=== PATIENT | male | born 1975 | race Caucasian/White ===

== ENCOUNTER 2019-08-02 07:55 | Outpatient (CLI) | payer OTHER, SELFPAY ==
[2019-08-02 08:27] LABS: Basophils Percent Auto 0.3 % (0.2-1.2); Eosinophils Absolute Auto 0.1 K/mm3 (0-0.3); Eosinophils Percent Auto 1.9 % (0-4.4); Hematocrit 44.3 % (42.0-52.0); Hemoglobin 14.7 g/dL (14.0-18.0); Immature Granulocyte Absolute 0.01 K/mm3 (0.00-0.031); Immature Granulocyte Percent A 0.2 % (0-0.5); Lymphocytes Absolute Auto 2.22 K/mm3 (0.9-3.2); Lymphocytes Percent Auto 38.3 % (18.3-44.2); Mean Corpuscular HGB Conc 33.2 g/dl (32-36); Mean Corpuscular Hemoglobin 29.2 pg (26-34); Mean Corpuscular Volume 88.1 fl (80-100); Mean Platelet Volume 10.6 fl (7.4-10.4); Monocytes Absolute Auto 0.5 K/mm3 (0.1-0.6); Neutrophils Absolute Auto 2.9 K/mm3 (1.3-6.7); Neutrophils Percent Auto 50.3 % (45.5-73.1); Platelet Count Result 249 k/mm3 (150-375); Red Blood Count 5.03 M/mm3 (4.6-6.20); Red Cell Distribution Width 13.2 % (11.5-14.5); White Blood Count 5.8 K/mm3 (4.5-10.0)
[2019-08-02 08:43] LABS: Blood Urea Nitrogen 16 mg/dL (9-20); Carbon Dioxide 27 mmol/L (22-30); Chloride 104 mmol/L (98-107); Cholesterol 213 mg/dL (0-200); Estimated Glomerular Filt Rate > 60; Glucose 96 mg/dL (75-110); HDL Direct 60 mg/dL; Potassium 3.9 mmol/L (3.4-5.0); Sodium 139 mmol/L (137-145); Triglycerides 74 mg/dL (<150)
[2019-08-02 08:54] LABS: LDL Cholesterol Direct 128 mg/dL
[2019-08-02 09:31] LABS: Vitamin D 25 Hydroxy 31.9 ng/mL
[2019-08-05 11:30] LABS: Testosterone Total 663 ng/dL (250-1100)
== END 2019-08-02 07:56 | disposition home or self-care (01) ==
LOC: ANHLAB 07:58
PROVIDERS: PCP Nurse Practitioner Family; Visit Provider Nurse Practitioner Family
DX: Z13.220 Encounter for screening for lipoid disorders (principal); R53.83 Other fatigue; Z13.1 Encounter for screening for diabetes mellitus; Z13.21 Encounter for screening for nutritional disorder; E55.9 Vitamin D deficiency, unspecified
CPT/HCPCS: 36415; 80048; 80061; 82306; 82607; 84403; 84443; 85025

== ENCOUNTER 2020-08-23 14:42 | Outpatient (CLI) | payer OTHER, SELFPAY ==
--- NOTE | ~2020-08-23 | XR_ITS ---
XR lumbar spine 6 by the latest impression status w bending DATE: 08/23/2020 15:01 INDICATION: Low back pain. No injury. TECHNIQUE: AP, bilateral oblique views, coned lateral lumbosacral view. Flexion and extension lateral views. COMPARISON: None FINDINGS: Normal alignment lumbar spine. No fracture or bone destruction. The lumbar pedicles are int act. No spondylolysis or spondylolisthesis. No instability on flexion or extension. There is moderate loss of interspace height and mild spurring at L5-S1. There is minimal spurring at L4-5. Degenerative changes at the sacroiliac joints. IMPRESSION: Moderate degenerative disc disease at L5-S1, minimal degenerative disease at L4-5 Reviewed, dictated and finalized at location B. IMPRESSION: Moderate degenerative disc disease at L5-S1, minimal degenerative d isease at L4-5
== END 2020-08-23 14:43 | disposition home or self-care (01) ==
LOC: ANHIMG 14:51
PROVIDERS: PCP Family Medicine; Visit Provider Nurse Practitioner Family
DX: M54.5 Low back pain (principal); M51.37 Other intervertebral disc degeneration, lumbosacral region
CPT/HCPCS: 72114

== ENCOUNTER → 2021-03-06 06:53 | Outpatient (CLI) | payer OTHER, SELFPAY ==
--- NOTE | ~2021-03-06 | MR_ITS ---
EXAMINATION: MR lumbar spine wo con EXAM DATE: 03/06/2021 07:26 INDICATION: M54.5 - Low back pain. TECHNIQUE: Multi-sequential, multiplanar MR images of the lumbar spine were obtained without contrast . Sagittal T1, T2, T2 fat saturation images. Axial T2 weighted images. There is no prior study for comparison. FINDINGS: There is mild to moderate loss of the L5-S1 disc height. Otherwise only minimal disc diseas e. Small L5-S1 annular fissure. The conus medullaris terminates at the L1/2 level and has normal sign al intensity and morphology. Mild edema at the inferior endplate of L5, appearance suggests acute de velopment of small Schmorl's node . Paraspinal soft tissue is unremarkable. Level by level evaluation: T12-L1: Disc does not extend beyond the endplate margin. Facet arthropathy: None. Neural foraminal stenosis: No stenosis. Central canal stenosis: No stenosis. L1-L2: Disc does not extend beyond the endplate margin. Facet arthropathy: Mild. Neural foraminal stenosis: No stenosis. Central canal stenosis: No stenosis. L2-L3: There is a mild diffuse disc bulge. Facet arthropathy: Mild. Neural foraminal stenosis: Mild left. Central canal stenosis: No stenosis. L3-L4: There is a mild diffuse disc bulge. Facet arthropathy: Mild. Neural foraminal stenosis: Mild left. Central canal stenosis: No stenosis. L4-L5: There is a mild diffuse disc bulge. Facet arthropathy: Mild. Neural foraminal stenosis: Mild bilateral. Central canal stenosis: No stenosis. L5-S1: There is a mild to moderate diffuse disc bulge. Facet arthropathy: Mild. Neural foraminal stenosis: Mild bilateral. Central canal stenosis: No stenosis. IMPRESSION: 1. L5 inferior endplate edema along its right half, probably acutely developed Schmorl's node. 2. Mild lumbar spondylosis. Reviewed, dictated and finalized at location A. VERER MERCHANDISE
== END ==
PROVIDERS: PCP Family Medicine; Visit Provider Nurse Practitioner Family
DX: M54.50 Low back pain, unspecified (principal); M51.36 Other intervertebral disc degeneration, lumbar region; M79.89 Other specified soft tissue disorders; M47.816 Spondylosis without myelopathy or radiculopathy, lumbar region
CPT/HCPCS: 72148

== ENCOUNTER 2021-08-19 09:33 | Outpatient (CLI) | payer OTHER, SELFPAY ==
[2021-08-19 09:55] LABS: Basophils Percent Auto 0.2 % (0.2-1.2); Eosinophils Absolute Auto 0.1 K/mm3 (0-0.3); Eosinophils Percent Auto 2.1 % (0-4.4); Hematocrit 43.9 % (42.0-52.0); Hemoglobin 14.3 g/dL (14.0-18.0); Lymphocytes Absolute Auto 1.63 K/mm3 (0.9-3.2); Lymphocytes Percent Auto 37.4 % (18.3-44.2); Mean Corpuscular HGB Conc 32.6 g/dl (32-36); Mean Corpuscular Hemoglobin 29.1 pg (26-34); Mean Corpuscular Volume 89.2 fl (80-100); Mean Platelet Volume 10.2 fl (7.4-10.4); Monocytes Absolute Auto 0.4 K/mm3 (0.1-0.6); Monocytes Percent Auto 8.7 % (2.6-8.5); Neutrophils Absolute Auto 2.3 K/mm3 (1.3-6.7); Neutrophils Percent Auto 51.6 % (45.5-73.1); Platelet Count Result 259 k/mm3 (150-375); Red Blood Count 4.92 M/mm3 (4.6-6.20); Red Cell Distribution Width 13.2 % (11.5-14.5); White Blood Count 4.4 K/mm3 (4.5-10.0)
[2021-08-19 10:05] LABS: Anion Gap 5 mmol/L (8-16); Blood Urea Nitrogen 14 mg/dL (9-20); Calcium 8.7 mg/dL (8.4-10.2); Carbon Dioxide 29 mmol/L (22-30); Chloride 106 mmol/L (98-107); Cholesterol 199 mg/dL (0-200); Estimated Glomerular Filt Rate > 60; Glucose 94 mg/dL (65-110); HDL Direct 51 mg/dL; Potassium 3.9 mmol/L (3.4-5.0); Sodium 140 mmol/L (137-145); Triglycerides 97 mg/dL (<150)
[2021-08-19 10:16] LABS: LDL Cholesterol Direct 111 mg/dL
[2021-08-19 10:36] LABS: Prostate Specific Antigen 1.2 ng/mL (< OR = 4.0)
== END 2021-08-19 09:34 | disposition home or self-care (01) ==
LOC: ANHLAB 09:35
PROVIDERS: PCP Family Medicine; Visit Provider Physician Assistant Medical
DX: R53.83 Other fatigue (principal); E78.5 Hyperlipidemia, unspecified; Z12.5 Encounter for screening for malignant neoplasm of prostate; Z13.1 Encounter for screening for diabetes mellitus
CPT/HCPCS: 36415; 80048; 80061; 84153; 85025; G0103

== ENCOUNTER 2021-10-15 13:14 | Outpatient (CLI) | payer OTHER, SELFPAY ==
[2021-10-15 14:07] LABS: Basophils Percent Auto 0.3 % (0.2-1.2); Eosinophils Absolute Auto 0.1 K/mm3 (0-0.3); Hematocrit 43.6 % (42.0-52.0); Hemoglobin 14.6 g/dL (14.0-18.0); Immature Granulocyte Absolute 0.01 K/mm3 (0.00-0.031); Immature Granulocyte Percent A 0.1 % (0-0.5); Lymphocytes Absolute Auto 2.28 K/mm3 (0.9-3.2); Lymphocytes Percent Auto 31.8 % (18.3-44.2); Mean Corpuscular HGB Conc 33.5 g/dl (32-36); Mean Corpuscular Hemoglobin 29.3 pg (26-34); Mean Corpuscular Volume 87.6 fl (80-100); Mean Platelet Volume 10.4 fl (7.4-10.4); Monocytes Absolute Auto 0.6 K/mm3 (0.1-0.6); Monocytes Percent Auto 8.4 % (2.6-8.5); Neutrophils Absolute Auto 4.2 K/mm3 (1.3-6.7); Neutrophils Percent Auto 58.4 % (45.5-73.1); Platelet Count Result 302 k/mm3 (150-375); Red Blood Count 4.98 M/mm3 (4.6-6.20); Red Cell Distribution Width 13.3 % (11.5-14.5); White Blood Count 7.2 K/mm3 (4.5-10.0)
== END 2021-10-15 13:15 | disposition home or self-care (01) ==
LOC: ANHLAB 13:15
PROVIDERS: PCP Family Medicine; Visit Provider Physician Assistant Medical
DX: D72.9 Disorder of white blood cells, unspecified (principal)
CPT/HCPCS: 36415; 85025

== ENCOUNTER → 2021-11-18 10:14 | Outpatient (CLI) | payer OTHER, SELFPAY ==
--- NOTE | ~2021-11-18 | MR_ITS ---
EXAMINATION: MR cervical spine wo con DATE: 11/18/2021 10:46 INDICATION: Right-sided neck pain. TECHNIQUE: Magnetic resonance imaging (MRI) of the cervical spine was performed without intravenous c ontrast. Sequences included sagittal T2-weighted FSE, sagittal T2-weighted FS FSE, sagittal T1-weight ed FSE, axial MERGE, and axial T2-weighted FSE. COMPARISON: None FINDINGS: Bone alignment is normal. Vertebral body heights are normal. There is mildly decreased disc height at C5-C6 and C6-C7. The spinal cord signal intensity is normal. The following disc levels are specifically discussed: C2-C3: There is a central protrusion. There is no uncovertebral joint osteoarthritis. There is severe right and mild left facet joint osteoarthritis. There is no neural foraminal stenosis. There is no c entral canal stenosis. C3-C4: There is a central protrusion. There is mild bilateral uncovertebral joint osteoarthritis. The re is mild bilateral facet joint osteoarthritis. There is mild left neural foraminal stenosis. There is mild central canal stenosis. C4-C5: The disc does not extend beyond the endplate margin. There is mild bilateral uncovertebral za nt osteoarthritis. There is mild bilateral facet joint osteoarthritis. There is mild left neural fora jagdish stenosis. There is no central canal stenosis. C5-C6: The disc is bulging. There is moderate right and severe left uncovertebral joint osteoarthriti s. There is mild bilateral facet joint osteoarthritis. There is mild right and moderate left neural f oraminal stenosis. There is mild central canal stenosis. C6-C7: The disc is bulging. There is mild right and moderate left uncovertebral joint osteoarthritis. There is mild bilateral facet joint osteoarthritis. There is mild left neural foraminal stenosis. Th ere is mild central canal stenosis. C7-T1: The disc does not extend beyond the endplate margin. There is no uncovertebral joint osteoarth ritis. There is mild bilateral facet joint osteoarthritis. There is no neural foraminal stenosis. The re is no central canal stenosis. IMPRESSION: 1. Moderate cervical spondylosis. Reviewed, dictated and finalized at location A.
== END ==
PROVIDERS: PCP Family Medicine; Visit Provider Orthopaedic Surgery Hand Surgery
DX: M47.813 Spondylosis without myelopathy or radiculopathy, cervicothoracic region (principal); M48.03 Spinal stenosis, cervicothoracic region
CPT/HCPCS: 72141

== ENCOUNTER 2023-02-22 12:43 | Outpatient (CLI) | payer OTHER, SELFPAY ==
--- NOTE | ~2023-02-22 | MR_ITS ---
MRI of the lumbar spine Clinical History: Radiculopathy Technique: Axial T2-weighted images, and sagittal T1-weighted, T2-weighted, and and T2 fat-sat images were acquired. Findings: There is no fracture or subluxation of the lumbar spine. Vertebral bodies maintain normal h eight and alignment. No bone marrow signal abnormality seen. L1-L2, there is no disc bulge or herniation. There is mild facet arthropathy. No central canal stenos is or neural foraminal narrowing. At L2-L3, there is minimal disc bulge. There is mild facet arthropathy. No central canal stenosis. Th ere is mild to moderate left neural foraminal narrowing. Right neural foramen preserved. L3-L4, there is minimal disc bulge with mild facet arthropathy. No central canal stenosis. There is m oderate bilateral neural foraminal narrowing. At L4-L5, there is minimal disc bulge with moderate facet arthropathy. No central canal stenosis or n eural foraminal narrowing. At L5-S1, there is minimal disc bulge with mild facet arthropathy. No central canal stenosis. There i s minimal bilateral neural foraminal narrowing. Paravertebral soft tissues are unremarkable. Impression: Mild degenerative spondylosis, as above. Reviewed, dictated and finalized at location M. ORNE OPERATIONS MANAGER Impression: Mild degenerative spondylosis, as above.
== END 2023-02-22 12:44 ==
LOC: MICIMG 12:47
PROVIDERS: Visit Provider Nurse Practitioner Family
DX: M43.06 Spondylolysis, lumbar region (principal)
CPT/HCPCS: 72148

== ENCOUNTER 2023-03-15 13:24 | Outpatient (CLI) | payer OTHER, SELFPAY ==
[2023-03-15 14:11] LABS: Basophils Percent Auto 0.3 % (0.2-1.2); Eosinophils Absolute Auto 0.1 K/mm3 (0-0.3); Eosinophils Percent Auto 1.2 % (0-4.4); Hematocrit 46.5 % (42.0-52.0); Hemoglobin 15.2 g/dL (14.0-18.0); Immature Granulocyte Absolute 0.01 K/mm3 (0.00-0.031); Immature Granulocyte Percent A 0.2 % (0-0.5); Lymphocytes Absolute Auto 1.95 K/mm3 (0.9-3.2); Lymphocytes Percent Auto 33.9 % (18.3-44.2); Mean Corpuscular HGB Conc 32.7 g/dl (32-36); Mean Corpuscular Hemoglobin 28.8 pg (26-34); Mean Corpuscular Volume 88.2 fl (80-100); Mean Platelet Volume 10.2 fl (7.4-10.4); Monocytes Absolute Auto 0.5 K/mm3 (0.1-0.6); Neutrophils Absolute Auto 3.2 K/mm3 (1.3-6.7); Neutrophils Percent Auto 56.4 % (45.5-73.1); Platelet Count Result 288 k/mm3 (150-375); Red Blood Count 5.27 M/mm3 (4.6-6.20); Red Cell Distribution Width 12.7 % (11.5-14.5); White Blood Count 5.8 K/mm3 (4.5-10.0)
[2023-03-15 14:21] LABS: Alanine Aminotransferase 40 U/L (6-50); Albumin Level 4.5 g/dL (3.5-5.1); Alkaline Phosphatase 52 U/L (38-126); Anion Gap 6 mmol/L (8-16); Aspartate Amino Transferase 32 U/L (17-59); Bilirubin,Total 0.9 mg/dL (0.2-1.3); Blood Urea Nitrogen 15 mg/dL (9-20); Calcium 9.6 mg/dL (8.4-10.2); Carbon Dioxide 27 mmol/L (22-30); Chloride 105 mmol/L (98-107); Cholesterol 256 mg/dL (0-200); Estimated Glomerular Filt Rate > 60; Glucose 93 mg/dL (65-110); HDL Direct 54 mg/dL; Potassium 4.1 mmol/L (3.4-5.0); Sodium 138 mmol/L (137-145); Triglycerides 134 mg/dL (<150)
[2023-03-15 14:33] LABS: LDL Cholesterol Direct 158 mg/dL
[2023-03-15 14:52] LABS: Prostate Specific Antigen 1.8 ng/mL (< OR = 4.0)
[2023-03-15 15:27] LABS: Vitamin D 25 Hydroxy 25.2 ng/mL
== END 2023-03-15 13:25 | disposition home or self-care (01) ==
LOC: ANHLAB 13:27
PROVIDERS: PCP Family Medicine; Visit Provider Physician Assistant Medical
DX: K92.1 Melena (principal); Z12.5 Encounter for screening for malignant neoplasm of prostate; Z13.220 Encounter for screening for lipoid disorders; Z13.1 Encounter for screening for diabetes mellitus; E55.9 Vitamin D deficiency, unspecified; R53.83 Other fatigue; E78.5 Hyperlipidemia, unspecified
CPT/HCPCS: 36415; 80053; 80061; 82306; 84153; 84443; 85025; G0103

== ENCOUNTER 2023-03-19 12:23 | Emergency (ER) | payer OTHER, SELFPAY ==
--- NOTE | 2023-03-19 12:34 | ED.URI ---
HPI - URI/Sore Throat General Chief Complaint: Upper Respiratory Infection Stated Complaint: Cough,Nausea,Chest Pain,Headache Time Seen by Provider: 03/19/23 12:50 Source: patient and RN notes reviewed Mode of arrival: ambulatory Limitations: no limitations History of Present Illness HPI Narrative: 48-year-old male presents concern for 5 day history of cough, nausea, chest discomfort with coughing, headache. Reports he has been taking DayQuil. Reports he was exposed to someone with flu on Wednesday MD elicited complaint: cough Related Data Allergies Allergy/AdvReac Type Severity Reaction Status Date / Time No Known Allergies Allergy Verified 03/19/23 12:31 Review of Systems Review of Systems: CONSTITUTIONAL: Denies malaise, chills, sweats, or fever. EYES: Denies visual changes, redness, or discharge. ENT: Reports rhinorrhea, congestion CARDIOVASCULAR: Denies chest pain, palpitations, or edema. RESPIRATORY: Reports cough. Denies dyspnea. GASTROINTESTINAL: Denies abdominal pain, vomiting, diarrhea. Reports nausea SKIN: Denies rash or itching. MUSCULOSKELETAL: Denies myalgia. NEUROLOGIC: Reports headache. All systems reviewed & are unremarkable except as noted in HPI and below PMFSH Past Medical History Medical History Abnormal MRI, lumbar spine BMI 25.0-25.9,adult BMI 27.0-27.9,adult COVID-19 Family History Family History Father Neuropathy Mother Heart disease Sibling No problems noted. Other Family history of coronary artery disease Social History Social History (Updated 03/15/23 @ 12:53 by Fabienne Lacey) Smoking status: Never smoker Second hand tobacco smoke exposure: No Alcohol intake: current Substance use: never Substance use type: does not use Do You Feel Safe in your Home?: Yes Lack of Transportation: No Lack of Food: Never True Current Housing: I Have Housing Concerned About Future Housing: No Difficulty Paying Gas/Electric Bills: No Difficulty Paying for Meds: No Currently Unemployed: No Education: Bachelor's Degree Difficulty w/ Childcare or Family Care: No Living arrangements: with family Occupation/Education: occupation 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 There is no relevant family history pertinent to the presenting complaint Exam Narrative: GENERAL: Well-appearing, well-nourished, and in no acute distress. HEAD: Normocephalic EYES: PERRLA, conjunctivae clear ENT: Nares clear. Mucous membranes moist. TM pearly rose with sharp light reflex bilaterally; no tragal tenderness. Oropharynx not erythematous without lesions. Tonsils not enlarged and without exudate, no drooling, no hoarseness, no trismus, uvula midline. NECK: Supple. No lymphadenopathy CHEST: Clear to auscultation, breath sounds equal. No wheezing, rhonchi, rales, or stridor. No respiratory distress, speaks in full sentences. HEART: Regular rate and rhythm. No murmur heard. SKIN: Warm, dry, no rash. NEURO: Alert and oriented x3. PSYCH: Normal mood and affect Course Course Emergency Course: Patient is aware of diagnosis, understands and agrees to treatment plan. Anticipatory guidance given. Patient agrees to follow-up as directed and is aware of reasons to seek care at the emergency department. Portions of this record may have been created with voice recognition software Level of Care: Express Care Visit Vital Signs Vital signs: Reviewed. MDM - URI/Sore Throat MDM Narrative Medical decision making narrative: Differential diagnosis considered: Whitehead virus, strep pharyngitis, allergic rhinitis, upper respiratory tract infection, sinusitis, rhinosinusitis, nasopharyngitis. viral pharyngiti
[2023-03-19 12:39] VITALS: BP 138/94; PULSE 79; RESP 18; TEMP 36.7; O2SAT 100
== END 2023-03-19 12:59 | disposition home or self-care (01) ==
PROVIDERS: Emergency Provider Nurse Practitioner; PCP Family Medicine
DX: J10.1 Influenza due to other identified influenza virus with other respiratory manifestations (principal); Z20.822 Contact with and (suspected) exposure to COVID-19; Z86.16 Personal history of COVID-19
CPT/HCPCS: 87426; 87804; 99213; G0463

== ENCOUNTER 2024-04-13 14:54 | Outpatient (CLI) | payer OTHER, SELFPAY ==
[2024-04-13 15:34] LABS: Basophils Percent Auto 0.1 % (0.2-1.2); Eosinophils Absolute Auto 0.1 K/mm3 (0-0.3); Eosinophils Percent Auto 1.1 % (0-4.4); Hematocrit 48.8 % (42.0-52.0); Hemoglobin 15.9 g/dL (14.0-18.0); Immature Granulocyte Absolute 0.02 K/mm3 (0.00-0.031); Immature Granulocyte Percent A 0.3 % (0-0.5); Lymphocytes Absolute Auto 2.85 K/mm3 (0.9-3.2); Lymphocytes Percent Auto 40.8 % (18.3-44.2); Mean Corpuscular HGB Conc 32.6 g/dl (32-36); Mean Corpuscular Volume 88.9 fl (80-100); Mean Platelet Volume 10.2 fl (7.4-10.4); Monocytes Absolute Auto 0.5 K/mm3 (0.1-0.6); Monocytes Percent Auto 7.4 % (2.6-8.5); Neutrophils Absolute Auto 3.5 K/mm3 (1.3-6.7); Neutrophils Percent Auto 50.3 % (45.5-73.1); Platelet Count Result 299 k/mm3 (150-375); Red Blood Count 5.49 M/mm3 (4.6-6.20); Red Cell Distribution Width 12.7 % (11.5-14.5)
[2024-04-13 15:43] LABS: Alanine Aminotransferase 33 U/L (6-50); Albumin Level 5.1 g/dL (3.5-5.1); Alkaline Phosphatase 56 U/L (38-126); Anion Gap 10 mmol/L (4-12); Aspartate Amino Transferase 26 U/L (17-59); Bilirubin,Total 0.9 mg/dL (0.2-1.3); Blood Urea Nitrogen 14 mg/dL (9-20); Calcium 10.1 mg/dL (8.4-10.2); Carbon Dioxide 29 mmol/L (22-30); Chloride 101 mmol/L (98-107); Cholesterol 253 mg/dL (0-200); Estimated Glomerular Filt Rate > 60; Glucose 94 mg/dL (65-110); HDL Direct 53 mg/dL; Potassium 5.4 mmol/L (3.4-5.0); Sodium 140 mmol/L (137-145); Triglycerides 146 mg/dL (<150)
[2024-04-13 15:54] LABS: LDL Cholesterol Direct 164 mg/dL
--- OUTSIDE RECORDS SUMMARY | 2024-04-13 16:14 | XMS_ITS | Encounter Summary ---
Author Organization [facility] Address [address] [place] [address] Care Team Providers Care Retail Client Manager Name Role Phone Celestine Wheeler MD Primary Care Provider [phone] Encounter Details Date Type Department Care Team (Late st Contact Info) Description 11/15/2001 Outpatient Historical [facility] [address] [place] [address] [address] [place] [address] Kris Mitchell [address] [place] [address] Social History Tobacco Use Types Packs/Day Years Used Date Smoking Tobacco: Never Assessed Sex and Gender Information Value Date Recorded Sex Assigned at Not on file 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 [address] PCP - General Family Practice 03/11/21 documented as of this encounter
--- OUTSIDE RECORDS SUMMARY | 2024-04-13 16:14 | XMS_ITS | Encounter Summary ---
Author Organization [facility] Address [address] [place] [address] Care Team Providers Care Social Scientist Name Role Phone Celestine Wheeler MD Primary Care Provider [phone] Reason for Visit * Reason Onset Date Comments ready to schedule 11/12/2021 Encounter Details Date Type Department Care Team (Late st Contact Info) Description 11/12/2021 Telephone [facility] Specialty Services [address] [place] [phone] Miscellaneous, Not In File ready to schedule Social History Tobacco Use Types Packs/Day Years Used Date Smoking Tobacco: Never Smokeless Tobacco: Never Sex and Gender Information Value Date Recorded Sex Assigned at Not on file 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
--- OUTSIDE RECORDS SUMMARY | 2024-04-13 16:14 | XMS_ITS | Encounter Summary ---
Author Organization [facility] Address 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, [place] [address] Patient: PHILLIP STOLL : 1975 Procedure Date: 06/03/2007 Accession Date: 06/03/2007 Case No: [id number] Ordering Dr: BRIA AVILA Case types AW, BW, FW, NW and SH are performed by [facility], [place], [place] SURGICAL PATHOLOGY & NON-GYNECOLOGIC CYTOPATHOLOGY REPORT DIAGNOSIS PALATINE TONSIL, RIGHT, TONSILLECTOMY: - REACTIVE FOLLICULAR LYMPHOID HYPERPLASIA. PALATINE TONSIL, LEFT, TONSILLECTOMY: - REACTIVE FOLLICULAR LYMPHOID HYPERPLASIA. Specimen Description: Tonsils-right tonsil marked. Operative Procedure: Tonsillectomy. Patient Information/Histor y/Diagnosis: Chronic tonsillitis. Gross: Received in a single container labeled Phillip Stoll, tonsils-right tonsil marked are two tonsils. The right tonsil is indicated with a safety pin and measures 2.5 x 1.5 x 1.5 cm. The left tonsil measures 2.5 x 1.6 x 1.4 cm. The mucosal surfaces are pink-rose and unremarkable. Sections reveal homogeneous, rizo parenchyma. Development Director sections of right tonsil are submitted in A1 and left in B1. [facility] 06.03.2007 07:12 pm Microscopic: The slides are labeled [id number], Phillip Stoll. The tonsils show a pattern of reactive follicular lymphoid hyperplasia. There are actinomycotic-like sulfur granules within the tonsillar crypts. In this location, these are normal saprophytic organisms. [facility] 06.06.2007 11:48 am Staging Form: No. ELECTRONIC SIGNATURE FOR TRAE GONZALEZ M.D.- 06/06/07 12:32 pm INTERFACE SYSTEM 06/03/2007 3:08 PM CDT Bria Avila MD PATHOLOGY/CYTOLOGY ORDERABLE S Final Result Performing Organization Address City/State/[facility] Co de Phone Number INTERFACE SYSTEM Refer to clinic/hospital department documented in this encounter Visit Diagnoses Diagnosis Acute tonsillitis documented in this encounter Care Teams Elementary [employer] Librarian Relationship Specialty Start Date End Date Celestine Wheeler MD [address] [place] [id number] PCP - General Family Practice 03/11/21 documented as of this encounter
--- OUTSIDE RECORDS SUMMARY | 2024-04-13 16:14 | XMS_ITS | Clinical Summary ---
Author Organization [facility] Address [address] [place] [address] Phone Care Team Providers Care Steel Plate Caulker Name Role Phone Celestine Wheeler MD Primary Care Provider Allergies No known active allergies Medications acetaminophen (TYLENOL) 500 mg tablet Take 500 mg by mouth every 6 hours as needed. Active multivit-min/iron /folic acid/K (ADULTS MULTIVITAMIN ORAL) Take by mouth. Active oxyCODONE (ROXICODONE) 5 mg tabletIndications :Postoperative pain Take 1 Tablet (5 mg) by mouth every 4 hours as needed for Pain. Max Daily Amount: 6 tablets 30 Tablet 05/20/2023 6:26 PM CDT 4 Active cyclobenzaprine (FLEXERIL) 10 mg tablet Take 1 Tablet (10 mg) by mouth every 8 hours as needed for Spasm or Other (See Comment) (back discomfort). 30 Tablet 1 4 Active Active Problems Problem Noted Date Diagnosed Date History of fusion of lumbar spine 09/09/2023 Bright red blood per rectum 02/23/2022 Proximal colon ulcer 02/23/2022 DDD (degenerative disc disease), lumbar 04/25/19 Presbyopia of both eyes 06/30/2018 Chronic serous otitis media 05/02/2015 Pain of foot 05/07/2014 Arthralgia of shoulder 04/24/2011 Resolved Problems Problem Noted Date Diagnosed Date Resolved Date Lumbar stenosis 05/18/2023 09/09/2023 Chronic right-sided low back pain with right-sided sciatica 04/24/2021 09/09/2023 Encounters Date Type Department Care Team Description 04/04/2024 External Device Data STL ABSTRACTION Provider, Abstract 03/02/2024 External Device Data STL ABSTRACTION Provider, Abstract from Last 3 Months Family History Medical History Relation Name Comments No Known Problems Father Heart Disease Maternal Grandfather No Known Problems Maternal Grandmother Heart Disease Maternal Uncle Heart Disease Mother No Known Problems Paternal Grandfather No Known Problems Paternal Grandmother Relation Name Status Comments Father Maternal Grandfather Maternal Grandmother Maternal Uncle Mother Paternal Grandfather Paternal Grandmother Social History Tobacco Use Types Packs/Day Years Used Date Smoking Tobacco: Never Smokeless Tobacco: Never Alcohol Use Standard Drinks/Week Comments Yes 2 (1 standard drink = 0.6 oz pur e alcohol) Feeling Safe Answer Date Recorded Are you in a relationship wi th someone who hurts you emotionally and/or physically? 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 Gender Identity Not on file Sexual Orientation Not on file Last Filed Vital Signs Vital Sign Reading Time Taken Comments Blood Pressure 141/95 12/23/2023 1:22 PM AUTO CLEANER Pulse 59 12/23/2023 1:22 PM AUTO CLEANER Temperature 36.7 C (98.1 F) 12/23/2023 1:22 PM AUTO CLEANER Respiratory Rate 18 05/20/2023 12:15 PM CDT Oxygen Saturation 98% 12/23/2023 1:22 PM AUTO CLEANER Inhaled Oxygen Concentration - - Weight 81.5 kg (179 lb 9.6 oz) 12/23/2023 1:22 P M AUTO CLEANER Height 170.2 cm (5' 7 ) 12/23/2023 1:22 PM AUTO CLEANER Body Mass Index 28.13 12/23/2023 1:22 PM AUTO CLEANER Plan of Treatment Health Maintenance Due Date Last Done Comments Pre-Diabetes and Diabetes Screening 1975 DTAP/TDAP/TD VACCINES (1 - Tdap) 02/17/1995 HEPATITIS B VACCINES (1 of 3 - 19+ 3-dose series) 02/17/1995 FIT-DNA Q 3 years 02/17/2021 FIT/FOBT Q 1 year 02/17/2021 Flex Sig/CT Colonography Q 5 years 02/17/2021 INFLUENZA VACCINE (#1) 2023 COLORECTAL SCREENING 01/14/2032 01/13/2022, 01/13/2022 Colorectal Cancer Screening 01/14/2032 PNEUMOCOCCAL VACCINE 0-49 YEARS Aged Out No longer eligible b ased on patient's age to complete this topic Medical Devices Implanted Type Area Grain Drier Operator Device Identifier Shelf Expiration Date Model / Serial / Lot Allograft Putty 1ml Attrax [id number] - [id number] Implanted:Qt y: 1 on 05/18/2023 by Tonio Bradley MD at [facility] Biological N/A: Abdomen NUVASIVE INC 11/25/2027 [id number] / / [id number] Description:All Nuvasive spi nal hardware, Requisition, [id number]. Infuse Protein Kit Xx- [id number] - [id number] Implanted:Qt y: 1 on 05/18/2023 by Tonio Bradley MD at [facility] Biological N/A: Spine Lumbar MEDTRONIC- SOFAMOR DANEK 02/08/2024 [id number] / / [id number] Modulus Alif Cage Implanted:Qt y: 1 on 05/18/2023 by Tonio Bradley MD at [facility] Cage N/A: Spine Lumbar NUV[employer] INC 02/15/2028 [id number] / / [id number] Clip Ligating Horizon Med Ti [id number] - Csc - [id number] Implanted:Qt y: 1 on 05/18/2023 by Leander Hartley MD at [facility] Clip N/A: Abdomen TELEFLEX- WECK CLOSURE SYS [id number] 05/15/2026 [id number] / / [id number] Clip Ligating Horizon Med Ti [id number] - Csc - [id number] Implanted:Qt y: 1 on 05/18/2023 by Leander Hartley MD at [facility] Clip N/A: Abdomen TELEFLEX- WECK CLOSURE SYS [id number] 01/05/2028 [id number] / / [id number] Hemostatic Surgiflo 8ml W/ Thrombin 2994 - [id number] Implanted:Qt y: 1 on 05/18/2023 by Tonio Bradley MD at [facility] Hemostatic N/A: Spine Lumbar J&J- ETHICON INC [id number] 06/07/2024 [id number] / / [id number] Bone Chips Canc 15ml [id number] - [id number] Implanted:Qt y: 1 on 05/18/2023 by Tonio Bradley MD at [facility] Tissue N/A: Spine Lumbar [employer]OSOURCE [id number] 12/21/2027 [id number] / [id number] / 5.0x25m Byron Screws Implanted:Qt y: 4 on 05/18/2023 by Tonio Bradley MD at [facility] N/A: Spine Lumbar NUV[employer] INC [id number] / / [id number] NO 113 STERILIZED MAY 17 Insurance [facility] OPEN ACCESS HMO RX [employer] RX Member Subscriber Plan / Payer (Ef fective 2023-Present) Name:Judd Stoll Relation to Subscriber:Self Name:Judd Stoll Subscriber ID:Not on file Payer ID:Not on file Type:RX Commercial Address: [address] Advance Directives For more information, please contact: [phone] * Full Code (Latest Code Status on File) Date Activated Date Inactivated Comments 05/18/2023 7:02 PM 05/20/2023 9:43 PM * Full Code Date Activated Date Inactivated Comments 05/18/2023 11:02 AM 05/18/2023 7:02 PM Care Teams Steel Plate Caulker Relationship Specialty Start Date End Date Celestine Wheeler MD [address] [place] [address] PCP - General Family Practice 03/11/21
--- OUTSIDE RECORDS SUMMARY | 2024-04-13 16:14 | XMS_ITS | Clinical Summary ---
Author Organization [facility] Address [facility] [place] [address] Care Team Providers Care Technology Analyst Name Role Phone Unavailable Primary Care Provider Unavailabl e Social History Tobacco Use Types Packs/Day Years Used Date Smoking Tobacco: Never Assessed Sex and Gender Information Value Date Recorded Sex Assigned at Not on file Legal Sex Male 5:21 PM CDT Gender Identity Not on file Sexual Orientation Not on file Plan of Treatment Health Maintenance Due Date Last Done Comments Colorectal Cancer Screening Colonoscopy (10 Years) 1975 Annual Physical 02/17/1979 Hepatitis C 02/17/1994 DTaP, Tdap and Td Vaccines ( 1 - Tdap) 02/17/1995 Hepatitis B Vaccines (1 of 3 - 19+ 3-dose series) 02/17/1995 COVID-19 Vaccine (2023-2 5 season) 2023 Influenza Adult (#1) 2023 Meningococcal B Vaccine Aged Out No l onger eligible based on patient's age to complete this topic Meningococcal Vaccine Aged Out No sandra sheela eligible based on patient's age to complete this topic Pneumococcal Vaccine: Pediat rics (0 to 5 Years) and At-Risk Patients (6 to 64 Years) Aged Out No longer eligible b ased on patient's age to complete this topic RSV Immunizations Under 20 Months Aged Out No longer eligible based on patient's age to complete this topic
--- OUTSIDE RECORDS SUMMARY | 2024-04-13 16:14 | XMS_ITS | Referral Summary ---
Author Organization [facility] Main [place] Address [address] [place] [address] Care Team Providers Care Strike Out Machine Operator Name Role Phone Celestine Wheeler MD Primary Care Provider Allergies No known active allergies Medications fluticasone propionate (FLONASE) 50 mcg/actuation nasal spray 06/23/2018 Active Active Problems Problem Noted Date Diagnosed Date Bright red blood per rectum 02/23/2022 Proximal colon ulcer 02/23/2022 Routine eye exam 06/30/2018 Presbyopia of both eyes 06/30/2018 Chronic serous otitis media 05/02/2015 Pain of foot 05/07/2014 Arthralgia of shoulder 04/24/2011 Social History Tobacco Use Types Packs/Day Years Used Date Smoking Tobacco: Never Smokeless Tobacco: Never Tobacco Cessation:Counseling Given: Not Answered AUDIT-C Answer Date Recorded Q1: How often do you have a drink containing alc ohol? 2-3 times a week 01/13/2022 Q2: How many drinks containi ng alcohol do you have on a typical day when you are drinking? 3 or 4 01/13/2022 Frequency of Binge Drinking Not on file 07/2021 Personal Safety Answer Date Recorded Getting School Help Needed Not on file 03/07 Sex and Gender Information Value Date Recorded Sex Assigned at Not on file Legal Sex Male 4:31 AM STRAW BOSS Gender Identity Not on file Sexual Orientation Not on file Last Filed Vital Signs Vital Sign Reading Time Taken Comments Blood Pressure 122/77 02/20/2022 8:40 AM STRAW BOSS Pulse 71 02/20/2022 8:40 AM STRAW BOSS Temperature 36.6 C (97.9 F) 02/20/2022 8:40 AM STRAW BOSS Respiratory Rate 16 01/13/2022 1:11 PM STRAW BOSS Oxygen Saturation 100% 01/13/2022 1:11 PM STRAW BOSS Inhaled Oxygen Concentration - - Weight 78 kg (172 lb) 02/20/2022 8:40 AM STRAW BOSS Height 170.2 cm (5' 7 ) 02/20/2022 8:40 AM STRAW BOSS Body Mass Index 26.94 02/20/2022 8:40 AM STRAW BOSS Plan of Treatment Not on file Procedures Procedure Name Priority Date/Time Associated Diagnosis Comments COLONOSCOPY 01/13/2022 12:16 PM STRAW BOSS from Last 3 Months or Most Recently Relevant to Health Maintenance Results * COLONOSCOPY (01/13/2022 12:16 PM STRAW BOSS) Anatomical Region Laterality Modality Other Narrative Procedure Note Carmela Miranda MD PhD - 01/13/2022 12:16 PM [facility] Patient Name: Judd Stoll Procedure Date: 01/13/2022 12:16 PM Date of : 1975 Admit Type: Outpatient Age: 46 Gender: Male Attending MD: Carmela Miranda MD,PHD Room: [facility] ENDOSCOPY ROOM 8 Note Status: Finalized Procedure: Colonoscopy Indications: Rectal bleeding Referring MD: Pascual Najera.N.PAzra Providers: Carmela Miranda MD, PHD Medicines: Monitored Anesthesia Care Complications: No immediate complications. Estimated Blood Loss: Estimated blood loss: none. Procedure: Pre-Anesthesia Assessment: - Immediately prior to administration ofmedications, the patient was re-assessed for adequacy to receive sedatives. - The risks and benefits of the procedure and the sedation options and risks were discussed with the patient. All questions were answered and informed consent was obtained. The benefits, risks and alternatives of theprocedure and sedation were discussed and informed consentwas obtained. All questions were answered. Please referto the signed informed consent document in the medical record. The scope was passed under direct vision.The [id number] endoscope was introduced through the anus and advanced to the terminal ileum. The colonoscopy was performed without difficulty. The patient tolerated the procedure well. The qualityof the bowel preparation was excellent. The quality of the bowel preparation was evaluated using the BBPS ([place] Bowel Preparation Scale) with scores of:Right Colon = 3, Transverse Colon = 3 and Left Colon = 3 (entire mucosa seen well with no residual staining, small fragments of stool or opaque liquid). Thetotal BBPS score equals 9. The bowel preparation used was polyethylene glycol (PEG) via split doseinstruction. Bowel prep was administered using a split dose. Findings: The perianal and digital rectal examinations were normal. The terminal ileum appeared normal. Ulcerated mucosa with no stigmata of recent bleeding were present atthe hepatic flexure. Biopsies were taken with a cold forceps forhistology. Internal hemorrhoids were found during retroflexion. The exam was otherwise without abnormality. Impression: - The examined portion of the ileum was normal. - Mucosal ulceration. Biopsied. - Internal hemorrhoids. - The examination was otherwise normal. Recommendation: - Await pathology results. - High fiber diet. - Repeat colonoscopy in 10 years for screening purposes. - You should be notified of the biopsy resultwithin 1-2 weeks. If you do not hear from Dr. Miranda'soffice regarding the biopsy result, please [phone]. Attending Participation: I personally performed the entire procedure. Electronically signed by Camrela Miranda MD. Carmela Miranda MD, PHD 01/13/2022 12:47:43 PM Number of Addenda: 0 Note Initiated On: 01/13/2022 12:16 PM Recognized by the [place] [employer] for promoting quality in endoscopy Carmela Miranda MD PhD ENDOSCOPY PROCEDURES Breann l Result from Last 3 Months or Most Recently Relevant to Health Maintenance Insurance [employer] [facility] Address: [facility] [id number] [place] [address] [employer] OPEN ACCESS Advance Directives For more information, please contact: [phone] * Full Code (Latest Code Status on File) Date Activated Date Inactivated Comments 01/13/2022 11:45 AM 01/13/2022 5:24 PM Care Teams Strike Out Machine Operator Relationship Specialty Start Date End Date Celestine Wheeler MD PCP - General 07/02/17
--- OUTSIDE RECORDS SUMMARY | 2024-04-13 16:14 | XMS_ITS | Encounter Summary ---
Author Organization [facility] Address [address] [place] [address] Care Team Providers Care Ironer Name Role Phone Celestine Wheeler MD Primary Care Provider [phone] Encounter Details Date Type Department Care Team (Late st Contact Info) Description 02/22/2001 Outpatient Historical [facility] [id number] [place] [address] [address] [place] [address] Kris Mitchell [address] [place] [address] Social History Tobacco Use Types Packs/Day Years Used Date Smoking Tobacco: Never Assessed Sex and Gender Information Value Date Recorded Sex Assigned at Not on file Legal Sex Male 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 [address] PCP - General Family Practice 03/11/21 documented as of this encounter
--- OUTSIDE RECORDS SUMMARY | 2024-04-13 16:14 | XMS_ITS | Encounter Summary ---
Author Organization [facility] Address [address] [place] [address] Care Team Providers Care Aerodynamics Teacher Name Role Phone Celestine Wheeler MD Primary Care Provider [phone] Encounter Details Date Type Department Care Team (Late st Contact Info) Description 04/24/1999 Outpatient Historical [facility] [place] [id number] [place] [address] [place] [address] [place] [address] [address] Social History Tobacco Use Types Packs/Day Years Used Date Smoking Tobacco: Never Assessed Sex and Gender Information Value Date Recorded Sex Assigned at Not on file Legal Sex Male 5:14 AM RN PACU Gender Identity Not on file Sexual Orientation Not on file documented as of this encounter Plan of Treatment Not on file documented as of this encounter Visit Diagnoses Not on filedocumented in this encounter Care Teams Aerodynamics Teacher Relationship Specialty Start Date End Date Celestine Wheeler MD [address] [place] [id number] PCP - General Family Practice 03/11/21 documented as of this encounter
--- OUTSIDE RECORDS SUMMARY | 2024-04-13 16:14 | XMS_ITS | Clinical Summary ---
Author Organization [facility] Main [place] Address [address] [place] [address] Care Team Providers Care Corrugator Name Role Phone Celestine Wheeler MD Primary Care Provider Allergies No known active allergies Medications fluticasone propionate (FLONASE) 50 mcg/actuation nasal spray 06/23/2018 Active Active Problems Problem Noted Date Diagnosed Date Bright red blood per rectum 02/23/2022 Proximal colon ulcer 02/23/2022 Routine eye exam 06/30/2018 Presbyopia of both eyes 06/30/2018 Chronic serous otitis media 05/02/2015 Pain of foot 05/07/2014 Arthralgia of shoulder 04/24/2011 Surgical History Surgery Date Site/Laterality Comments ME TONSILLECTOMY PRIMARY/SEC ONDARY <AGE 13 Tonsillectomy - (Added by TW Conv) BICEPS TENDON REPAIR Medical History Medical History Date Comments Allergy status to unspecifie d drugs, medicaments and biological substances status History of seasonal allergie s - (Added by TW Conv) Blood in stool Social History Tobacco Use Types Packs/Day Years [...] on file Legal Sex Male 4:31 AM PIGMENT MAKING SUPERVISOR Gender Identity Not on file Sexual Orientation Not on file Obstetrics History Last Filed Vital Signs Vital Sign Reading Time Taken Comments Blood Pressure 122/77 02/20/2022 8:40 AM PIGMENT MAKING SUPERVISOR Pulse 71 02/20/2022 8:40 AM PIGMENT MAKING SUPERVISOR Temperature 36.6 C (97.9 F) 02/20/2022 8:40 AM PIGMENT MAKING SUPERVISOR Respiratory Rate 16 01/13/2022 1:11 PM PIGMENT MAKING SUPERVISOR Oxygen Saturation 100% 01/13/2022 1:11 PM PIGMENT MAKING SUPERVISOR Inhaled Oxygen Concentration - - Weight 78 kg (172 lb) 02/20/2022 8:40 AM PIGMENT MAKING SUPERVISOR Height 170.2 cm (5' 7 ) 02/20/2022 8:40 AM PIGMENT MAKING SUPERVISOR Body Mass Index 26.94 02/20/2022 8:40 AM PIGMENT MAKING SUPERVISOR Plan of Treatment Health Maintenance Due Date Last Done Comments Depression Screening 1975 Hepatitis C Screening 1975 DTaP/Tdap/Td Vaccine (1 - Tdap) 02/17/1987 Hepatitis B Screening 02/17/1994 Regular Well Visit/Exam 18-64 02/17/1994 Covid-19 Vaccine (4 - 2023-2 5 season) 2023 01/29/2021, 02/23/2020, 02/05/2020 Influenza Vaccine (#1) 2023 Colon Cancer Screening-Colonoscopy 01/14/2032 01/13/2022 Pneumococcal vaccine <65 Aged Out No longer eligible based on patient's age to complete this topic Procedures Procedure Name Priority Date/Time Associated Diagnosis Comments COLONOSCOPY 01/13/2022 12:16 PM PIGMENT MAKING SUPERVISOR from Last 3 Months or Most Recently Relevant to Health Maintenance Results * COLONOSCOPY (01/13/2022 12:16 PM PIGMENT MAKING SUPERVISOR) Anatomical Region Laterality Modality Other Narrative Procedure Note Carmela Miranda MD PhD - 01/13/2022 12:16 PM [facility] Patient Name: Judd tSoll Procedure Date: 01/13/2022 12:16 PM Date of : 1975 Admit Type: Outpatient Age: 46 Gender: Male Attending MD: Carmela Miranda MD,PHD Room: [facility] ENDOSCOPY ROOM 8 Note Status: Finalized Procedure: Colonoscopy Indications: Rectal bleeding Referring MD: Lisa Salcedo, F.N.P. Providers: Carmela Miranda MD, PHD Medicines: Monitored [...] The scope was passed under direct vision.The [id number] endoscope was introduced through the anus and advanced to the terminal ileum. The colonoscopy was performed without difficulty. The patient tolerated the procedure well. The qualityof the bowel preparation was excellent. The quality of the bowel preparation was evaluated using the BBPS ([place] Bowel Preparation Scale) with scores of:Right Colon [...] Dr. Miranda'soffice regarding the biopsy result, please [phone]. Attending Participation: I personally performed the entire procedure. Electronically signed by Carmela Miranda MD. Carmela Miranda MD, PHD 01/13/2022 12:47:43 PM Number of Addenda: 0 Note Initiated On: 01/13/2022 12:16 PM Recognized by the [employer] for promoting quality in endoscopy Carmela Miranda MD PhD ENDOSCOPY PROCEDURES Breann l Result from Last 3 Months or Most Recently Relevant to Health Maintenance Insurance [facility] OPEN ACCESS [facility] OPEN ACCESS Advance Directives For more information, please contact: [phone] * Full Code (Latest Code Status on File) Date Activated Date Inactivated Comments 01/13/2022 11:45 AM 01/13/2022 5:24 PM Care Teams Corrugator Relationship Specialty Start Date End Date Celestine Wheeler MD PCP - General 07/02/17
--- OUTSIDE RECORDS SUMMARY | 2024-04-13 16:14 | XMS_ITS | Encounter Summary ---
Author Organization [facility] Address [address] [place] [address] Care Team Providers Care Buffet Waiter/Waitress Name Role Phone Celestine Wheeler MD Primary Care Provider [phone] Encounter Details Date Type Department Care Team (Late st Contact Info) Description 10/23/2003 Outpatient Historical [facility] Kris Greco [address] [place] [address] JOINT PAIN-FOREARM (Primary Dx) Social History Tobacco Use Types Packs/Day Years Used Date Smoking Tobacco: Never Assessed Sex and Gender Information Value Date Recorded Sex Assigned at Not on file Legal Sex Male 5:14 AM DONOR RELATIONS MANAGER Gender Identity Not on file Sexual Orientation Not on file documented as of this encounter Plan of Treatment Not on file documented as of this encounter Visit Diagnoses Diagnosis Pain in joint, forearm- Primary documented in this encounter Care Teams Buffet Waiter/Waitress Relationship Specialty Start Date End Date Celestine Wheeler MD [address] [place] [id number] PCP - General Family Practice 03/11/21 documented as of this encounter
--- OUTSIDE RECORDS SUMMARY | 2024-04-13 16:14 | XMS_ITS | Continuity of Care Document ---
Author Organization [facility] Address [address] [facility] [address] [place] [address] Phone Care Team Providers Care Cardiac Cath Rn Name Role Phone Jabier ESTEVES, Clovis Unavailable Unavai lable Allergies, Adverse Reactions, Alerts Substance Reaction Status Criticality No Known Allergies Active No Inform ation Medications Medication Instructions Dosage Effective Dates (start - stop) Status Comments cyclobenzaprine 10 mg tablet TAKE 1 TABLET BY MOUTH THREE TIMES DAILY NEEDED FOR MUSCLE SPASM - Active peg 3350-electrolytes 236 gram-22.74 gram-6.74 gram-5.86 gram solution - Active Procedures Procedure Date Office/outpatient visit,est, mod 2022 Office/outpatient visit,est, mod 2022 Asp/inject major joint or bursa w/o US g uidance Omnipaque, 300-399 mg/ml, per ml 2022 X-ray exam Cervical 3 Views Or Less Office/outpatient visit,new, mod 2021 Advance Directives Directive Yes / No Effective Date File Name No Information Encounters Encounter Description Practice Location Reason(s) For Visit Diagnoses Date Provider Providers Copied on Encounter Office/outpa tient visit,est, mod [facility], [address] [place], [place] [address], [id number], [place] tel:[phone] [facility] Left arm (chief complaint) elbow (chief complaint) Lateral epicondylitis, left elbow Apr- 3 Jabier Atkinson er. [address] [facility], [facility] [address], [place], [id number] , [place]. tel: [phone] Office/outpa [facility]ient visit,[facility], [address], [id number], [place] tel:[phone] [facility] Cervical (chief complaint) cervical spine (chief complaint) Frozen shoulderBicipital tendinitis, right shoulderPain in right shoulder 3 O'Francine Demetrio er. [address] [facility], [address], [id number] , [place]. tel: [phone] [facility], [address], [id number], [phone] [facility] No Information 2 O'Boymart Demetrio er. [address] [facility], [address], [id number] , [place]. tel: [phone] Office/outpa tient visit,[facility], [facility], [address], [id number], [place] tel:[phone] [facility] Cervical (chief complaint) cervical spine (chief complaint) CervicalgiaSpondy losis w/o myelopathy of cervical regionRadiculopat hy, cervical region 2 O'Francine Demetrio er. [address] [facility], [address], [id number] , [place]. tel: [phone] Family History Family Member Type Diagnosis Age At Onset Mother Problem (finding) Heart Disease Payers Payer name Insurance type Covered republican ID Sarah dent(s) Joyce Kiran [id number] Social History Type Description Quantity Date Captured Comments Alcohol Use Details Unknown Caffeine Use Details Unknown Tobacco Use Status Current non-smoker Smoking Status Never smoker Non-Smoking Tobacco Use Details : No Details Available : No Details Available Sex Male Vital Signs Date / Time: Height Weight BMI Pulse Rate Blood Pressure Temperature Respiratory Rate Body Surface Area Head Circumference Head Circ. Percentile Wt./Fernando. Percentile BMI percentile Pulse Ox Inhaled Ox 4:20 PM 67.00 in 72.575 kg (160.00 lbs) 25.0 6 kg/m eter (2) Chief Complaint And Reason For Visit From encounter dated '04/13/2022 15:45'. Left arm (chief complaint) elbow (chief complaint). Description: Judd Gabriel is a pleasant 47-year-old male who presents for a follow-up evaluation. He was previously seen in early 03/2022 for right-sided shoulder pain. He received an injection at that time, which has provided 75 percent relief of his pain.Today, the patient reports left-sided anterior elbow pain over the flexor wad, particularly with pronation activities. Reason For Referral Reason For Referral No Information Plan Of Treatment Date Type Action Status Referral Ordered: Injection Transforaminal, single, cervical/thoracic SNRB RT spine, cervical ordered Referral Ordered: X-ray exam Cervical 3 Views Or Less spine, cervical ordered History Of Present Illness Encounter Date Complaint History Of Prese nt Illness Left arm elbow Judd Gabriel i s a pleasant 47-year-old male who presents for a follow-up evaluation. He was previously seen in early 03/2022 for right-sided shoulder pain. He received an injection at that time, which has provided 75 percent relief of his pain.Today, the patient reports left-sided anterior elbow pain over the flexor wad, particularly with pronation activities. cervical spine Judd Gabriel i s a pleasant 47-year-old male who follows up for right-sided shoulder pain and arm pain that I thought may be consistent with radiculopathy; however, his MRI was more radiographically impressive on the left side. He returns today indicating that a lot of his upper extremity symptoms have resolved with the exception of pain anteriorly along the shoulder, along with decreased range of motion and pain with range of motion. The patient can not reach into the back seat any longer. He has difficulty reaching overhead secondary to pain, as well as limited range of motion. Cervical Judd comes in to the office for cervical spine. cervical spine Judd Gabriel i s a pleasant 46-year-old male who was referred by Dr. Sharpe for right upper extremity complaints consistent with radiculopathy. He has been through formal physical therapy recently without significant improvement. He was seen by Dr. Sharpe for concerns with carpal tunnel syndrome, prompting an MRI of the cervical spine. This revealed foraminal stenosis bilaterally at C5-6 and C6-7, radiographically much worse on the left than the right; however, it is present bilaterally. The patient continues to endorse right-sided upper extremity pain in the deltoid, biceps, triceps, and down into the hands with numbness and tingling. It does involve the thumb. Cervical Judd comes in to the office for cervical spine. Functional Status Date Functional Assessmen t No Information Instructions Date Instruction Additional Infor dyana Plan of Care:Judd Gabriel is a pleasant 47-year-old male who has potential left lateral epicondylitis or extensor wad pain. I recommend bracing over the next few weeks with activity modification and anti-inflammatory medication. The patient will follow up in a few weeks. If he has continued symptoms, we may make a referral to Dr. Bradley for an evaluation of the left elbow.The medical record documentation of this Provider's service encounter was entered by Millicent Sutton, acting as Acid Strength Inspector for Clovis Eugene MD. Related to Lateral epicondylitis, left elbow Plan of Care:Judd Gabriel is a pleasant 47-year-old male who has foraminal disease at C5-6 and C6-7, worse on the left than the right that I believe would result in radicular complaints. His symptoms revolve more around the right shoulder. He does have mechanical restrictions of range of motion and pain with biceps tendon testing. I am going to perform a right-sided injection today into the shoulder. We will allow him to wait 10 to 15 minutes and we will reassess. We will also move forward with right-sided shoulder formal physical therapy for a diagnosis of biceps tendinitis, right shoulder pain, and possible right adhesive capsulitis. He will call me on 03/16/2021, to let me know how much pain relief he received from the injection. If he is pain-free and still has restricted range of motion, I think we are dealing more with a adhesive capsulitis, which does not make much difference. I believe he most likely has biceps tendinitis resulting in mechanical shoulder pain.Procedure Note: Right Intra-articular Shoulder InjectionPre-procedure diagnoses are right shoulder pain, biceps tendinitis, and restricted range of motion.Post-procedure diagnoses are right shoulder pain, biceps tendinitis, and restricted range of motion.Provider is Clovis Eugene MD.Complications: None.EBL: None.After a review of allergies and verbal consent was obtained, the posterior portal of the right shoulder was identified using anatomical landmarks. The posterior portal of the right shoulder was prepped with alcohol. Local anesthesia was achieved with Ethyl Chloride. I then placed the needle into the posterior glenohumeral joint, and I externally rotated the humerus to bring the needle further into the joint. Aspiration revealed no synovial fluid. I then injected a total of 5 cc, including 2 cc of Celestone and 3 cc of lidocaine. The needle was withdrawn, and a sterile bandage was applied. The patient was reevaluated between 5 and 10 minutes later, he reported some improvement in his pain; however, he still has some presence of pain. He was not having complete reduction of his pain symptoms. He will follow up as instructed.The medical record documentation of this provider's service encounter was entered by Carolyn Donovan, acting as Acid Strength Inspector for Clovis Eugene MD. Related to Pain in right shoulder Plan of Care:Judd Gabriel is a pleasant 46-year-old male who has spondylosis at C5-6 and C6-7, as well as foraminal narrowing at C5-6 and C6-7 that is radiographically worse on the left than the right. He remains symptomatic on the right, which is very classic for a radicular complaint. I am going to seek authorization for a right-sided C6 and right-sided C7 selective nerve root block in an attempt to at least clean a diagnostic response, if not, potentially a therapeutic injection. Depending upon how he responds to these injections, he may be a candidate for a cervical disc replacement versus cervical fusion at C5-6 and C6-7. I had a long discussion with him today that radiographically his stenosis appears much worse on the left than the right; however, symptomatically, he is more right-sided than left. I believe that these injections do well to help us along the way of confirming his diagnosis before making any surgical recommendations.The medical record documentation of this provider's service encounter was entered by Carolyn Donovan, acting as Acid Strength Inspector for Clovis Eugene MD. Related to Radiculopathy, cervical region Assessments Type Assessment Date assessment Lateral epicondylitis, left elbo w Patient Care Teams Name Effective Dates (start - stop) Status Members No Information
--- OUTSIDE RECORDS SUMMARY | 2024-04-13 16:14 | XMS_ITS | Encounter Summary ---
Author Organization [facility] Address [address] [place] [address] Care Team Providers Care International Guest Coordinator Name Role Phone Celestine Wheeler MD Primary Care Provider [phone] Encounter Details Date Type Department Care Team (Late st Contact Info) Description 08/13/2000 Outpatient Historical [facility] [place] [id number] [place] [address] [place] [address] [place] [address] [address] Social History Tobacco Use Types Packs/Day Years Used Date Smoking Tobacco: Never Assessed Sex and Gender Information Value Date Recorded Sex Assigned at Not on file 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 [id number] PCP - General Family Practice 03/11/21 documented as of this encounter
--- OUTSIDE RECORDS SUMMARY | 2024-04-13 16:14 | XMS_ITS | Encounter Summary ---
Author Organization [facility] Address 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 [id number] PCP - General Family Practice 03/11/21 documented as of this encounter
[2024-04-13 16:16] LABS: Prostate Specific Antigen 1.9 ng/mL (< OR = 4.0)
[2024-04-13 17:09] LABS: Vitamin D 25 Hydroxy 34.4 ng/mL
== END 2024-04-13 14:55 | disposition home or self-care (01) ==
LOC: ANHLAB 14:55
PROVIDERS: PCP Family Medicine
DX: Z13.1 Encounter for screening for diabetes mellitus (principal); Z13.29 Encounter for screening for other suspected endocrine disorder; Z13.220 Encounter for screening for lipoid disorders; Z12.5 Encounter for screening for malignant neoplasm of prostate; Z13.0 Encounter for screening for diseases of the blood and blood-forming organs and certain disorders involving the immune mechanism; E55.9 Vitamin D deficiency, unspecified
CPT/HCPCS: 36415; 80053; 80061; 82306; 84153; 84443; 85025; G0103

== ENCOUNTER 2024-04-28 13:48 | Outpatient (CLI) | payer OTHER, SELFPAY ==
--- NOTE | ~2024-04-28 | US_ITS ---
US soft tissue UE RT 04/28/2024 14:06 Indication: Mass right fifth digit Procedure: High-resolution Limited ultrasound of the right fifth digit Comparison: No prior studies for comparison. Findings: Normal heterogeneous soft tissues without discrete mass in the area of palpable concern. Impression: 1: Normal limited soft tissue of the right fifth finger without discrete mass. Consider correlation w ith MRI with contrast. Reviewed, dictated and finalized at location B. Impression: 1: Normal limited soft tissue of the right fifth finger without discrete mass. Consider correlation with MRI with contrast.
== END 2024-04-28 13:49 | disposition home or self-care (01) ==
LOC: MICIMG 13:49
PROVIDERS: PCP Family Medicine; Visit Provider Plastic Surgery
DX: R22.31 Localized swelling, mass and lump, right upper limb (principal)
CPT/HCPCS: 76882

== ENCOUNTER 2024-05-29 14:09 | Emergency (ER) | payer OTHER, SELFPAY ==
[2024-05-29 14:22] VITALS: BP 140/93; PULSE 66; RESP 18; TEMP 36.4; O2SAT 100
[2024-05-29 14:52] LABS: EDCOVIDSCREEN Negative (Negative); EDINFLUASCREEN Negative (Negative); EDINFLUBSCREEN Negative (Negative)
--- NOTE | 2024-05-29 14:55 | ED.URI ---
HPI - URI/Sore Throat General Chief Complaint: Upper Respiratory Infection Stated Complaint: sinus infection Time Seen by Provider: 05/29/24 14:25 Source: patient Mode of arrival: ambulatory Limitations: no limitations History of Present Illness HPI Narrative: Judd is a 49-year-old male patient presenting to the clinic today with complaints of a possible sinus infection. He reports he has had sinus congestion and nonproductive cough x4 days. Denies any chest pain or shortness of breath. No known fever or chills or body aches. Denies sore throat Related Data Allergies Allergy/AdvReac Type Severity Reaction Status Date / Time No Known Allergies Allergy Verified 05/29/24 14:23 Review of Systems Review of Systems: Pertinent positives per HPI. Patient denies any fever, chills, rash, headache, visual changes, dizziness, cough, shortness of breath, chest pain, palpitations, nausea, vomiting, diarrhea, constipation, abdominal pain, or any urinary issues. [facility], [facility] Past Medical History Medical History BMI 25.0-25.9,adult Abnormal MRI, lumbar spine COVID-19 BMI 27.0-27.9,adult Family History Family History Father Neuropathy Mother Heart disease Sibling No problems noted. Other Family history of coronary artery disease Social History Social History Smoking status: Never smoker Second hand tobacco smoke exposure: No Alcohol intake: current Substance use: never Substance use type: does not use Do You Feel Safe in your Home?: Yes Lack of Transportation: No Lack of Food: Never True Current Housing: I Have Housing Concerned About Future Housing: No Difficulty Paying Gas/Electric Bills: No Difficulty Paying for Meds: No Currently Unemployed: No Education: Bachelor's Degree Difficulty w/ Childcare or Family Care: No Living arrangements: with family Occupation/Education: occupation 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 There is no relevant family history pertinent to the patient complaint. Exam Narrative: General: Well-developed, well nourished, in no apparent distress Head: Normocephalic, atraumatic Eyes: Pupils equally round and reactive to light bilaterally, EOM intact, sclera and conjunctive clear, no discharge, lids normal Ears: TMs intact and congested, ear canals clear, no drainage, grossly hearing normal. Nose: Nares patent, clear nasal discharge, mild inflammation, no sinus tenderness. Mouth: Oral pharynx without lesions or masses, good dentition, MMM. Neck: Supple, trachea midline, no enlargement of anterior or posterior cervical nodes, no thyroid masses or goiter palpable. Cardio: Regular rate and rhythm, s1 and s2 normal, no murmur appreciated. Resp: Clear to auscultation bilaterally, no rhonchi, rales, wheezing or rubs Course Course Emergency Course: Portions of this record may have been created with voice recognition software. Level of Care: Express Care Visit Vital Signs Vital signs: Vital Signs Temperature 36.4 C L 05/29/24 14:22 Pulse Rate 66 05/29/24 14:22 Respiratory Rate 18 05/29/24 14:22 Blood Pressure 140/93 H 05/29/24 14:22 Pulse Oximetry 100 05/29/24 14:22 Oxygen Delivery Room Air 05/29/24 14:22 Temperature 36.4 C L 05/29/24 14:22 Pulse Rate 66 05/29/24 14:22 Respiratory Rate 18 05/29/24 14:22 Blood Pressure 140/93 H 05/29/24 14:22 Pulse Oximetry 100 05/29/24 14:22 Oxygen Delivery Room Air 05/29/24 14:22 Vital signs reviewed MDM - URI/Sore Throat MDM Narrative Medical decision making narrative: At the time of visit patient is resting comfortably on the exam table. Patient appears to be nontoxic. Labs: COVID and influenza testing were negative in the clinic today. Plan: I suspect patient has upper respiratory infection. Prescription for prednisone and Tessalon Perles was sent to the pharmacy. Supportive measures were discussed with the patient and they voiced understanding discharge instructions and agrees to treatment plan. Return precautions reviewed Differential Diagnosis Differential diagnosis: Likely upper respiratory infection, otitis media, sinusitis, viral infection, bronchitis, influenza, pharyngitis and other (COVID) Lab Data Labs: Lab Results 05/29/24 Range/Units 14:49 POC Influenza A Ag Negative (Negative) POC Influenza B Ag Negative (Negative) POC SARS CoV-2 Ag Negative (Negative) Discharge Plan Discharge Clinical Impression: Upper respiratory infection Qualifiers: URI type: unspecified URI Qualified Code(s): J06.9 - Acute upper respiratory infection, unspecified Patient Disposition: Home Condition: Stable Instructions: Antibiotic Form, Cold Symptoms (ED) Additional Instructions: Take prescription medications only as prescribed- prednisone Increase fluids and stay well hydrated Tylenol/motrin for pain/fever Flonase and OTC antihistamines as directed Vicks vapor rub to open sinuses Sinus rinses for congestion Cepacol spray, cough drops, throat lozenges, warm tea with honey/lemon, gargle salt water to soothe throat BRAT diet for diarrhea Clear liquids x 24 hours then advance as tolerated for nausea/vomiting Go to the ED if you develop a worsening in your condition- high fever not controlled by Tylenol or Motrin, dehydration, weakness, lethargy, shortness of breath, or chest pain. Follow up with your PCP in 3-5 days if symptoms persist. Patient Language: Welsh Prescriptions: New prednisone 20 mg tablet 40 mg PO DAILY 5 Days Qty: 10 0RF benzonatate 200 mg capsule 200 mg PO TID 7 Days Qty: 21 0RF Follow-up/Referrals: Celestine Wheeler MD [Primary Care Provider] - Time of Disposition: 14:49 Quality NIHSS Nursing Documentation ED NIHSS nursing documentation: reviewed/agree
--- OUTSIDE RECORDS SUMMARY | 2024-05-29 16:04 | XMS_ITS | Continuity of Care Document ---
Author Organization [facility] Address [address] [facility] [address] [place] [address] Phone Care Team Providers Care Winding Inspector Name Role Phone Jabier ESTEVES, Clovis Unavailable [...] Encounter Office/outpa tient visit,est, mod [facility], [address] [place], [place] [address], [id number], [place] tel:[phone] [facility] Left arm (chief complaint) elbow (chief complaint) Lateral epicondylitis, left elbow Apr- 3 Jabier Atkinson er. [address] [facility], [facility] [address], [place], [id number] , [place]. tel: [phone] Office/outpa tient visit,[facility], [address], [id number], [place] tel:[phone] [facility] Cervical (chief complaint) cervical spine (chief complaint) Frozen shoulderBicipital tendinitis, right shoulderPain in right shoulder 3 O'Francine Demetrio er. [address] [facility], [address], [id number] , [place]. tel: [phone] [facility], [address], [id number], [phone] [facility] No Information 2 O'Boymart Demetrio er. [address] [facility], [address], [id number] , [place]. tel: [phone] Office/outpa tient visit,[facility], [facility], [address], [id number], [place] tel:[phone] [facility] Cervical (chief complaint) cervical spine (chief complaint) CervicalgiaSpondy losis w/o myelopathy of cervical regionRadiculopat hy, cervical region 2 O'Francine Demetrio er. [address] [facility], [address], [id number] , [place]. tel: [phone] Family History Family Member Type Diagnosis Age At Onset Mother Problem (finding) Heart Disease Payers Payer name Insurance type Covered libertarian ID Sarah dent(s) Joyce Kiran [id number] Social History Type Description Quantity Date Captured [...] was entered by Millicent Sutton, acting as Hematology Technician for Clovis Eugene MD. Related to Lateral [...] was entered by Carolyn Donovan, acting as Hematology Technician for Clovis Eugene MD. Related to Pain [...] was entered by Carolyn Donovan, acting as Hematology Technician for Clovis Eugene MD. Related to Radiculopathy, cervical region Assessments Type Assessment Date assessment Lateral epicondylitis, left elbo w Patient Care Teams Name Effective Dates (start - stop) Status Members No Information
--- OUTSIDE RECORDS SUMMARY | 2024-05-29 16:04 | XMS_ITS | Encounter Summary ---
Author Organization [facility] Address [address] [place] [address] Care Team Providers Care Engineering Equipment Operator Name Role Phone Celestine Wheeler MD Primary Care Provider [phone] Encounter Details Date Type Department Care Team (Late st Contact Info) Description 02/22/2001 Outpatient Historical [facility] [address] [place] [address] [address] [place] [address] Kris Mitchell [address] [place] [address] Social History Tobacco Use Types Packs/Day Years Used Date Smoking Tobacco: Never Assessed Sex and Gender Information Value Date Recorded Sex Assigned at Not on file 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 [address] PCP - General Family Practice 03/11/21 documented as of this encounter
--- OUTSIDE RECORDS SUMMARY | 2024-05-29 16:04 | XMS_ITS | Encounter Summary ---
Author Organization [facility] Address [address] [place] [address] Care Team Providers Care Guide Domestic Tour Name Role Phone Celestine Wheeler MD Primary Care Provider [phone] Encounter Details Date Type Department Care Team (Late st Contact Info) Description 04/24/1999 Outpatient Historical [facility] Medicine [place] [id number] [place] [address] [place] [address] [place] [address] [address] Social History Tobacco Use Types Packs/Day Years Used Date Smoking Tobacco: Never Assessed Sex and Gender Information Value Date Recorded Sex Assigned at Not on file 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 [phone] PCP - General Family Practice 03/11/21 documented as of this encounter
--- OUTSIDE RECORDS SUMMARY | 2024-05-29 16:04 | XMS_ITS | Encounter Summary ---
Author Organization [facility] Address [address] [place] [address] Care Team Providers Care Pr Intern Name Role Phone Celestine Wheeler MD Primary Care Provider [phone] Encounter Details Date Type Department Care Team (Late st Contact Info) Description 08/13/2000 Outpatient Historical 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 [id number] PCP - General Family Practice 03/11/21 documented as of this encounter
--- OUTSIDE RECORDS SUMMARY | 2024-05-29 16:04 | XMS_ITS | Encounter Summary ---
Author Organization [facility] Address 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 [phone] PCP - General Family Practice 03/11/21 documented as of this encounter
--- OUTSIDE RECORDS SUMMARY | 2024-05-29 16:04 | XMS_ITS | Clinical Summary ---
Author Organization [facility] Address [address] [place] [address] Phone Care Team Providers Care Rice Farmer Name Role Phone Celestine Wheeler MD Primary [...] Encounters Date Type Department Care Team Description 05/23/2024 External Device Data STL ABSTRACTION Provider, Abstract 04/19/2024 External Device Data STL ABSTRACTION Provider, Abstract 04/18/2024 External Device Data STL ABSTRACTION Provider, Abstract 04/15/2024 External Device Data STL ABSTRACTION Provider, Abstract 04/14/2024 External Device Data STL ABSTRACTION Provider, Abstract 04/04/2024 External Device Data STL ABSTRACTION Provider, [...] on file Legal Sex Male 5:14 AM SURGICAL INSTRUMENT TECHNICIAN Gender Identity Not on file Sexual Orientation Not on file Last Filed Vital Signs Vital Sign Reading Time Taken Comments Blood Pressure 141/95 12/23/2023 1:22 PM SURGICAL INSTRUMENT TECHNICIAN Pulse 59 12/23/2023 1:22 PM SURGICAL INSTRUMENT TECHNICIAN Temperature 36.7 C (98.1 F) 12/23/2023 1:22 PM SURGICAL INSTRUMENT TECHNICIAN Respiratory Rate 18 05/20/2023 12:15 PM CDT Oxygen Saturation 98% 12/23/2023 1:22 PM SURGICAL INSTRUMENT TECHNICIAN Inhaled Oxygen Concentration - - Weight 81.5 kg (179 lb 9.6 oz) 12/23/2023 1:22 P M SURGICAL INSTRUMENT TECHNICIAN Height 170.2 cm (5' 7 ) 12/23/2023 1:22 PM SURGICAL INSTRUMENT TECHNICIAN Body Mass Index 28.13 12/23/2023 1:22 PM SURGICAL INSTRUMENT TECHNICIAN Plan of Treatment Health Maintenance Due Date Last Done Comments Pre-Diabetes and Diabetes Screening 1975 DTAP/TDAP/TD VACCINES (1 - Tdap) 02/17/1995 HEPATITIS B VACCINES (1 of 3 - 19+ 3-dose series) 02/17/1995 FIT-DNA Q 3 years 02/17/2021 FIT/FOBT Q 1 year 02/17/2021 Flex Sig/CT Colonography Q 5 years 02/17/2021 INFLUENZA VACCINE (#1) 2023 COLORECTAL SCREENING 01/14/2032 01/13/2022, 01/14/20 Colorectal Cancer Screening 01/14/2032 Medical Devices Implanted Type Area Tumbler Operator Device Identifier Shelf Expiration Date Model / Serial / Lot Allograft Putty 1ml Attrax [id number] - [id number] Implanted:Qt y: 1 on 05/18/2023 by Tonio Bradley MD at [facility] Biological N/A: Abdomen NUVASIVE INC 11/25/2027 [id number] / / [id number] Description:All Nuvasive spi nal hardware, Requisition, [id number]. Infuse Protein Kit Xx-Sm [id number] - [id number] Implanted:Qt y: 1 on 05/18/2023 by Tonio Bradley MD at [facility] Biological N/A: Spine Lumbar MEDTRONIC- SOFAMOR DANEK 02/08/2024 [id number] / / [id number] Modulus Alif Cage Implanted:Qt y: 1 on 05/18/2023 by Tonio Bradley MD at [facility] Cage N/A: Spine Lumbar NUV[employer] INC 02/15/2028 [id number] / / [id number] Clip Ligating Horizon Med Ti [id number] - Csc - [id number] Implanted:Qt y: 1 on 05/18/2023 by Leander Hartley MD at [facility] Clip N/A: Abdomen TELEFLEX- WECK CLOSURE SYS [id number] 05/15/2026 [id number] / / [id number] Clip Ligating Horizon Med Ti [id number] - Csc - [id number] Implanted:Qt y: 1 on 05/18/2023 by Leander Hartley MD at [facility] Clip N/A: Abdomen TELEFLEX- WECK CLOSURE SYS [id number] 01/05/2028 [id number] / / [id number] Hemostatic Surgiflo 8ml W/ Thrombin 2994 - [id number] Implanted:Qt y: 1 on 05/18/2023 by Tonio Bradley MD at [facility] Hemostatic N/A: Spine Lumbar J&J- ETHICON INC [id number] 06/07/2024 [id number] / / [id number] Bone Chips Canc 15ml [id number] - [id number] Implanted:Qt y: 1 on 05/18/2023 by Tonio Bradley MD at [facility] Tissue N/A: Spine Lumbar ALLOSOURCE [id number] 12/21/2027 [id number] / [id number] / 5.0x25m Acampo Screws Implanted:Qt y: 4 on 05/18/2023 by Tonio Bradley MD at [facility] N/A: Spine Lumbar NUV[employer] INC [id number] / / LOAD NO 113 STERILIZED MAY 17 Insurance [facility] OPEN ACCESS HMO RX OPT[employer] RX Member Subscriber Plan / Payer (Ef fective 2023-Present) Name:Judd Stoll Relation to Subscriber:Self Name:Judd Stoll Subscriber ID:Not on file Payer ID:Not on file Type:RX Commercial Address: [address] Advance Directives For more information, please contact: [phone] * Full Code (Latest Code Status on File) Date Activated Date Inactivated Comments 05/18/2023 7:02 PM 05/20/2023 9:43 PM * Full Code Date Activated Date Inactivated Comments 05/18/2023 11:02 AM 05/18/2023 7:02 PM Care Teams Rice Farmer Relationship Specialty Start Date End Date Celestine Wheeler MD [address] [place] [address] PCP - General Family Practice 03/11/21
--- OUTSIDE RECORDS SUMMARY | 2024-05-29 16:04 | XMS_ITS | Clinical Summary ---
Author Organization [facility] [place] Address [address] [place] [address] Care Team Providers Care Associate Professor Of Counseling Name Role Phone Celestine Wheeler MD Primary Care Provider [phone] Allergies No known active allergies Medications fluticasone propionate (FLONASE) 50 mcg/actuation nasal spray 06/23/2018 Active Active Problems Problem Noted Date Diagnosed Date Bright red blood per rectum 02/23/2022 Proximal colon ulcer 02/23/2022 Routine eye exam 06/30/2018 Presbyopia of both eyes 06/30/2018 Chronic serous otitis media 05/02/2015 Pain of foot 05/07/2014 Arthralgia of shoulder 04/24/2011 Surgical History Surgery Date Site/Laterality Comments CO TONSILLECTOMY PRIMARY/SEC ONDARY <AGE 13 Tonsillectomy - [...] on file Legal Sex Male 4:31 AM CURATOR ZOOLOGICAL MUSEUM Gender Identity Not on file Sexual Orientation Not on file Obstetrics History Last Filed Vital Signs Vital Sign Reading Time Taken Comments Blood Pressure 122/77 02/20/2022 8:40 AM CURATOR ZOOLOGICAL MUSEUM Pulse 71 02/20/2022 8:40 AM CURATOR ZOOLOGICAL MUSEUM Temperature 36.6 C (97.9 F) 02/20/2022 8:40 AM CURATOR ZOOLOGICAL MUSEUM Respiratory Rate 16 01/13/2022 1:11 PM CURATOR ZOOLOGICAL MUSEUM Oxygen Saturation 100% 01/13/2022 1:11 PM CURATOR ZOOLOGICAL MUSEUM Inhaled Oxygen Concentration - - Weight 78 kg (172 lb) 02/20/2022 8:40 AM CURATOR ZOOLOGICAL MUSEUM Height 170.2 cm (5' 7 ) 02/20/2022 8:40 AM CURATOR ZOOLOGICAL MUSEUM Body Mass Index 26.94 02/20/2022 8:40 AM CURATOR ZOOLOGICAL MUSEUM Plan of Treatment Health Maintenance Due Date [...] Associated Diagnosis Comments COLONOSCOPY 01/13/2022 12:16 PM CURATOR ZOOLOGICAL MUSEUM from Last 3 Months or Most Recently Relevant to Health Maintenance Results * COLONOSCOPY (01/13/2022 12:16 PM CURATOR ZOOLOGICAL MUSEUM) Anatomical Region Laterality Modality Other Narrative Procedure Note Carmela Miranda MD PhD - 01/13/2022 12:16 PM [facility] Patient Name: Judd Stoll Procedure Date: 01/13/2022 12:16 PM Date of : 1975 Admit Type: Outpatient Age: 46 Gender: Male Attending MD: Carmela Miranda MD,PHD Room: [facility] ENDOSCOPY ROOM 8 Note Status: Finalized Procedure: [...] The scope was passed under direct vision.The [id number] endoscope was introduced through the anus and advanced to the terminal ileum. The colonoscopy was performed without difficulty. The patient tolerated the procedure well. The qualityof the bowel preparation was excellent. The quality of the bowel preparation was evaluated using the BBPS ([place] Bowel Preparation Scale) with scores of:Right Colon [...] Dr. Miranda'soffice regarding the biopsy result, please [phone]. Attending Participation: I personally performed the entire procedure. Electronically signed by Carmela Miranda MD. Carmela Miranda MD, PHD 01/13/2022 12:47:43 PM Number of Addenda: 0 Note Initiated On: 01/13/2022 12:16 PM Recognized by the [place] [employer] for promoting quality in endoscopy Carmela Miranda MD PhD ENDOSCOPY PROCEDURES Breann l Result from Last 3 Months or Most Recently Relevant to Health Maintenance Insurance [facility] OPEN ACCESS [facility] OPEN ACCESS Advance Directives For more information, please contact: [phone] * Full Code (Latest Code Status on File) Date Activated Date Inactivated Comments 01/13/2022 11:45 AM 01/13/2022 5:24 PM Care Teams Associate Professor Of Counseling Relationship Specialty Start Date End Date Celestine Wheeler MD PCP - General 07/02/17
--- OUTSIDE RECORDS SUMMARY | 2024-05-29 16:04 | XMS_ITS | Clinical Summary ---
Author Organization [facility] Address [facility] [place] [address] Care Team Providers Care Dial Screw Assembler Name Role Phone Unavailable Primary Care Provider [...] 02/17/1995 COVID-19 Vaccine (2023-2 5 season) 2023 Meningococcal B Vaccine Aged Out No l onger eligible based on patient's age to complete this topic Meningococcal Vaccine Aged Out No sandra sheela eligible based on patient's age to complete this topic Pneumococcal Vaccine: Pediat rics (0 to 5 Years) and At-Risk Patients (6 to 49 Years) Aged Out No longer eligible b ased on patient's age to complete this topic RSV Immunizations Under 20 Months Aged Out No longer eligible based on patient's age to complete this topic
--- OUTSIDE RECORDS SUMMARY | 2024-05-29 16:04 | XMS_ITS | Encounter Summary ---
Author Organization [facility] Address 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 [address] PCP - General Family Practice 03/11/21 documented as of this encounter
--- OUTSIDE RECORDS SUMMARY | 2024-05-29 16:04 | XMS_ITS | Encounter Summary ---
Author Organization [facility] Address 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 [place], [place] [address] Patient: PHILLIP STOLL : 1975 Procedure Date: 06/03/2007 Accession Date: 06/03/2007 Case No: [id number] Ordering Dr: BRIA AVILA Case types AW, BW, FW, NW and SH are performed by [facility], [place], [place] SURGICAL PATHOLOGY & NON-GYNECOLOGIC CYTOPATHOLOGY REPORT [...] and unremarkable. Sections reveal homogeneous, rizo parenchyma. Assistant Gm Of Content & Delivery sections of right tonsil are submitted in A1 and left in B1. [facility] 06.03.2007 07:12 pm Microscopic: The slides are labeled [id number], Phillip Stoll. The tonsils show a pattern of reactive follicular lymphoid hyperplasia. There are actinomycotic-like sulfur granules within the tonsillar crypts. In this location, these are normal saprophytic organisms. [facility] 06.06.2007 11:48 am Staging Form: No. ELECTRONIC SIGNATURE FOR TRAE GONZALEZ M.D.- 06/06/07 12:32 pm INTERFACE SYSTEM 06/03/2007 3:08 PM CDT Bria Avila MD PATHOLOGY/CYTOLOGY ORDERABLE S Final Result Performing Organization Address City/State/[facility] Co de Phone Number INTERFACE SYSTEM Refer to clinic/hospital department documented in this encounter Visit Diagnoses Diagnosis Acute tonsillitis documented in this encounter Care Teams Program Advisor Relationship Specialty Start Date End Date Celestine Wheeler MD [address] [place] [phone] PCP - General Family Practice 03/11/21 documented as of this encounter
--- OUTSIDE RECORDS SUMMARY | 2024-05-29 16:04 | XMS_ITS | Continuity of Care Document ---
Author Organization [facility] Address [address] [place] [address] Phone Care Team Providers Care Bridge Operator Name Role Phone Jabier ESTEVES, Clovis Unavailable [...] Encounter Office/outpa tient visit,est, mod [facility], [address] [place], [place] [address], [id number], [place] tel:[phone] [facility] Left arm (chief complaint) elbow (chief complaint) Lateral epicondylitis, left elbow Apr- 3 Jabier Atkinson er. [address] [facility], [facility] [address], [place], [id number] , [place]. tel: [phone] Office/outpa tient visit,[facility], [address], [id number], [place] tel:[phone] [facility] [facility] Cervical (chief complaint) cervical spine (chief complaint) Frozen shoulderBicipital tendinitis, right shoulderPain in right shoulder 3 O'Francine Demetrio er. [address] [facility], [address], [id number] , [place]. tel: [phone] [facility], [address], [id number], [phone] [facility] No Information 2 O'Boymart Demetrio er. [address] [facility], [address], [id number] , [place]. tel: [phone] Office/outpa tient visit,[facility], [facility], [address], [id number], [place] tel:[phone] [facility] [employer] [facility] Cervical (chief complaint) cervical spine (chief complaint) CervicalgiaSpondy losis w/o myelopathy of cervical regionRadiculopat hy, cervical region 2 O'Francine Demetrio er. [address] [facility], [address], [id number] , [place]. tel: [phone] Family History Family Member Type Diagnosis Age At Onset Mother Problem (finding) Heart Disease Payers Payer name Insurance type Covered alliance party ID Sarah dent(s) Joyce Kiran [id number] Social History Type Description Quantity Date Captured [...] was entered by Millicent Sutton, acting as Coil Connector Repairer for Clovis Eugene MD. Related to Lateral [...] was entered by Carolyn Donovan, acting as Coil Connector Repairer for Clovis Eugene MD. Related to Pain [...] was entered by Carolyn Donovan, acting as Coil Connector Repairer for Clovis Eugene MD. Related to Radiculopathy, cervical region Assessments Type Assessment Date assessment Lateral epicondylitis, left elbo w Patient Care Teams Name Effective Dates (start - stop) Status Members No Information
--- OUTSIDE RECORDS SUMMARY | 2024-05-29 16:04 | XMS_ITS | Referral Summary ---
Author Organization [facility] Main [place] Address [address] [place] [address] Care Team Providers Care Motion Designer Name Role Phone Celestine Wheeler MD Primary [...] on file Legal Sex Male 4:31 AM EXPERIMENTAL PSYCHOLOGIST Gender Identity Not on file Sexual Orientation Not on file Last Filed Vital Signs Vital Sign Reading Time Taken Comments Blood Pressure 122/77 02/20/2022 8:40 AM EXPERIMENTAL PSYCHOLOGIST Pulse 71 02/20/2022 8:40 AM EXPERIMENTAL PSYCHOLOGIST Temperature 36.6 C (97.9 F) 02/20/2022 8:40 AM EXPERIMENTAL PSYCHOLOGIST Respiratory Rate 16 01/13/2022 1:11 PM EXPERIMENTAL PSYCHOLOGIST Oxygen Saturation 100% 01/13/2022 1:11 PM EXPERIMENTAL PSYCHOLOGIST Inhaled Oxygen Concentration - - Weight 78 kg (172 lb) 02/20/2022 8:40 AM EXPERIMENTAL PSYCHOLOGIST Height 170.2 cm (5' 7 ) 02/20/2022 8:40 AM EXPERIMENTAL PSYCHOLOGIST Body Mass Index 26.94 02/20/2022 8:40 AM EXPERIMENTAL PSYCHOLOGIST Plan of Treatment Not on file Procedures Procedure Name Priority Date/Time Associated Diagnosis Comments COLONOSCOPY 01/13/2022 12:16 PM EXPERIMENTAL PSYCHOLOGIST from Last 3 Months or Most Recently Relevant to Health Maintenance Results * COLONOSCOPY (01/13/2022 12:16 PM EXPERIMENTAL PSYCHOLOGIST) Anatomical Region Laterality Modality Other Narrative Procedure Note Carmela Miranda MD PhD - 01/13/2022 12:16 PM [facility] Patient Name: Judd Stoll Procedure Date: 01/13/2022 12:16 PM Date of : 1975 Admit Type: Outpatient Age: 46 Gender: Male Attending MD: Carmela Miranda MD,PHD Room: [facility] ENDOSCOPY ROOM 8 Note Status: Finalized [...] scope was passed under direct vision.The CF [id number] endoscope was introduced through the anus and advanced to the terminal ileum. The colonoscopy was performed without difficulty. The patient tolerated the procedure well. The qualityof the bowel preparation was excellent. The quality of the bowel preparation was evaluated using the BBPS ([place] Bowel Preparation Scale) with scores of:Right Colon [...] Dr. Miranda'soffice regarding the biopsy result, please [phone]. Attending Participation: I personally performed the entire procedure. Electronically signed by Carmela Miranda MD. Carmela Miranda MD, PHD 01/13/2022 12:47:43 PM Number of Addenda: 0 Note Initiated On: 01/13/2022 12:16 PM Recognized by the [place] [employer] for promoting quality in endoscopy Carmela Miranda MD PhD ENDOSCOPY PROCEDURES Breann l Result from Last 3 Months or Most Recently Relevant to Health Maintenance Insurance [employer] OPEN ACCESS [place] OPEN ACCESS Advance Directives For more information, please contact: [phone] * Full Code (Latest Code Status on File) Date Activated Date Inactivated Comments 01/13/2022 11:45 AM 01/13/2022 5:24 PM Care Teams Motion Designer Relationship Specialty Start Date End Date Celestine Wheeler MD PCP - General 07/02/17
--- OUTSIDE RECORDS SUMMARY | 2024-05-29 16:04 | XMS_ITS | Encounter Summary ---
Author Organization [facility] Address 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 [phone] PCP - General Family Practice 03/11/21 documented as of this encounter
--- OUTSIDE RECORDS SUMMARY | 2024-05-29 16:04 | XMS_ITS | Encounter Summary ---
Author Organization [facility] Healthcare Address [address] [place] [id number] Care Team Providers Care Patient Registration Supervisor Name Role Phone Celestine Wheeler MD Primary Care Provider [phone] Reason for Visit * Reason Onset Date Comments ready to schedule 11/12/2021 Encounter Details Date Type Department Care Team (Late st Contact Info) Description 11/12/2021 Telephone [facility] Special[facility] [address] [place] [phone] Miscellaneous, Not In File ready to schedule Social History Tobacco Use Types Packs/Day Years Used Date Smoking Tobacco: Never Smokeless Tobacco: Never Sex and Gender Information Value Date Recorded Sex Assigned at Not on file Legal Sex Male 4:31 AM [facility] Gender Identity Not on file Sexual Orientation Not on file documented as of this encounter Plan of Treatment Not on file documented as of this encounter Visit Diagnoses Not on filedocumented in this encounter Care Teams Patient Registration Supervisor Relationship Specialty Start Date End Date Celestine Wheeler MD PCP - General 07/02/17 documented as of this encounter
== END 2024-05-29 14:55 | disposition home or self-care (01) ==
PROVIDERS: Nurse Practitioner Family; Emergency Provider Nurse Practitioner; PCP Family Medicine
DX: J06.9 Acute upper respiratory infection, unspecified (principal); Z20.822 Contact with and (suspected) exposure to COVID-19
CPT/HCPCS: 87426; 87804; 99213; G0463